=== PATIENT | male | born 1990 | race Caucasian/White ===

== ENCOUNTER → 2020-04-22 12:13 | Outpatient (BNVA) | payer OTHER, SELFPAY | PROVIDERS: Family Provider Internal Medicine; Visit Provider Nurse Practitioner Family | DX: Z20.828 Contact with and (suspected) exposure to other viral communicable diseases (principal) | CPT/HCPCS: 87635 ==

== ENCOUNTER 2024-10-17 06:11 | Emergency (ER) | payer OTHER, SELFPAY ==
[2024-10-17 06:20] VITALS: BP 123/74; PULSE 89; RESP 16; TEMP 36.6; O2SAT 97
--- NOTE | 2024-10-17 07:00 | XR_ITS ---
WS: [id number] XR foot LT min 3V* [id number] REASON FOR EXAM: fall with injury FINDINGS: Calcaneus is intact Somewhat underexposed. No acute fracture. Lisfranc articulations are normal normal base of the fifth metatarsal. Mild TMT varus and MTP valgus joint subluxations of the first toe with minimal arthropathy. The joint spaces of the midfoot are intact and well preserved. On the lateral view there is a subtle cortical offset which could potentially represent an occult nondisplaced fracture of the anterior inferior calcaneus. Correlation with region of pain. No radiopaque soft tissue foreign body. XR/XR foot LT min 3V* [id number] IMPRESSION: Subtle finding of the calcaneus as above.
--- NOTE | 2024-10-17 09:10 | CT_ITS ---
WS: [id number] Noncontrast CT LEFT foot TECHNIQUE: Noncontrast CT LEFT foot with coronal and sagittal reformatted images. CLINICAL INFORMATION: traumatic heal pain c/o calcaneous fx COMPARISON: None. DLP: 155.[address] scans at [facility] use at least one of these dose optimization techniques: automated exposure control; mA and/or kV adjustment per patient size (includes targeted exams where dose is matched to clinical indication); or iterative reconstruction. FINDINGS: Tiny amount of irregularity and cortical step-off involving the anterior medial plantar surface of the calcaneus compatible with a tiny nondisplaced cortical fracture. No other acute fracture is visualized. Tiny plantar calcaneal spur. Normal talar dome. Distal fibula is normal. Normal tibiotalar joint and tibial plafond. Normal cuboid. Normal navicular. Normal ankle mortise. Normal medial lateral malleolus. Plantar soft tissue edema. No other acute findings. CT/CT foot LT wo con* [id number] IMPRESSION: Tiny nondisplaced cortical fracture anterior medial calcaneus corresponding to the radiograph findings
--- NOTE | 2024-10-17 09:11 | ED_ITS ---
HPI - Extremity Problem General: Chief complaint: Extremity Injury, Lower Stated complaint: lt foot inj Time Seen by Provider: 10/17/24 08:29 History of Present Illness: 34-year-old male presents emergency depa rtment chief complaint of left heel pain and mid to foot pain. Patient endorses that he was getting up on a storage shelf while using his flip-flops in which she proceeded to jump down approximately 6 to 8 feet onto the floor patient endorses significant pain located to the left heel with unable to weight-bear without moderate to severe pain. Patient denies any prior history of foot or ankle trauma previously. Patient reports note he sustained no other associated injuries. Associated symptoms: Deny chest pain, fever(s) or rash Related Data Home Medications ?Medication ?Instructions ?Recorded ?Confirmed cetirizine 5 mg-pseudoephedrine ER 1 tab PO Q12H PRN A llergy Symptoms 10/17/24 10/17/24 120 mg tablet,extended release,12hr (Zyrtec-D) Previous Rx's ?Medication ?Instructions ?Recorded hydrocodone 5 mg-acetaminophen 325 1 tab PO Q8H PRN pa in #20 tabs 10/17/24 mg tablet Allergies Allergy/AdvReac Type Severity Reaction Status Date / Time No Known Allergies Allergy Unverified 04/22/20 10:23 Review of Systems General: Reports: 10 or more systems reviewed and unremarkable except in HPI and below Const: Denies: fever(s), chills, fatigue or malaise Eyes: Denies: change in vision or blurry vision Card: Denies: chest pain or palpitations Resp: Denies: dyspnea or productive cough GI: Denies: abdominal pain, nausea or vomiting : Denies: flank pain Musc: Reports: extremity pain; Denies: extremity swelling Skin/Breast: Denies: rash or pruritus Neuro: Denies: headache(s) Psych: Denies: anxiety or depression Terry/Lymph: Denies: easy bleeding All/Imm: Denies: urticaria, throat swelling or facial swelling PFSH ED PFSH: Social History Smoking and tobacco/nicotine status: unknown if used tobacco/nicotine Physical Exam Const: COMMON NORMALS: no acute distress, patient oriented x3 and healthy appearing HENMT: COMMON NORMALS: normocephalic and atraumatic HEAD & SCALP: normocephalic and atraumatic Eye: COMMON NORMALS: Equal, round and reactive pupils present and EOMs intact bilaterally PUPIL: Yes Equal, round and reactive pupils present Neck/C-Spine: COMMON NORMALS: full ROM, supple and no JVD Lymph: LYMPHATIC: no lymphadenopathy noted Chest: COMMONS NORMALS: normal inspection of the chest and normal palpation of entire chest wall Resp: COMMON NORMALS: normal respiratory effort, No retractions and clear to auscultation bilaterally EFFORT & INSPECTION: Yes able to speak in complete sentences and Yes symmetric chest movement AUSCULTATION: clear to auscultation bilaterally Cardio: COMMON NORMALS: no JVD, regular rate and regular rhythm RATE: regular rate RHYTHM: regular rhythm GI: COMMON NORMALS: Normal to inspection, nondistended, normoactive bowel sounds present, Soft to palpation and non-tender INSPECTION: Yes normal to inspection PALPATION: Yes Soft to palpation : COMMON NORMALS: Yes no CVA tenderness BLADDER/KIDNEY EXAM: Yes no CVA tenderness Back/Pelvis: COMMON NORMALS: no CVA tenderness Extremity: COMMON NORMALS: negative for normal to inspection and negative for full ROM NARRATIVE EXTREMITY EXAM: Moderate pain to palpation over the heel of the left ankle no obvious ecchymosis crepitus appreciated, the patient has a little bit difficulty with plantar extension due to pain there is also pain over the midfoot region over the ball of the foot, neurovascularly intact distally Neuro: COMMON NORMALS: patient oriented x3, CN's II-XII intact bilaterally, moves all extremities and no focal motor deficits Psych: COMMON NORMALS: mental status grossly normal, Normal thought process present, cooperative and normal affect THOUGHT PROCESS: Normal thought process present Skin: COMMON NORMALS: no rashes or lesions noted GENERAL SKIN EXAM: no rashes or lesions noted Course Vital Signs: Vital signs: Vital Signs Temperature 98 F 10/17/24 06:20 Pulse Rate 89 10/17/24 06:20 Respiratory Rate 16 10/17/24 06:20 Blood Pressure 123/74 10/17/24 06:20 Pulse Oximetry 97 10/17/24 06:20 MDM - Extremity (Nontraumatic) Medical Decision Making X-ray imaging was originally obtained the patient revealed a questionable cortical abnormality in the calcaneus is noted by radiology due to this this he does need CT of the foot without contrast will be obtained underlying concerns on exam is a calcaneus fracture and midfoot injury patient will be provided a dose of hydrocodone for his breakthrough pain control will continue to follow. Discussed patient's case with Dr. Palacios on for foot and ankle and which does not take care of these calcaneus fractures which recommended prompt follow-up outpatient with with him on Sunday in the office, patient will be placed into a short leg splint with crutches hydrocodone was provided for breakthrough pain control advised further follow-up as previously discussed and was to return the interim if any the patient's symptoms persist or worsen. Lab Data Radiology Impressions Foot X-Ray 10/17/24 07:00 IMPRESSION: Subtle finding of the calcaneus as above. Foot CT 10/17/24 09:10 IMPRESSION: Tiny nondisplaced cortical fracture anterior medial calcaneus corresponding to the radiograph findings All radiology interpretation(s) finalized by discharge Discharge Plan Discharge Patient Disposition: Home Clinical Impression: Calcaneus fracture, left Qualifiers: Encounter type: initial encounter Calcaneus location: unspecified portion of calcaneus Fracture type: closed Fracture alignment: nondisplaced Qualified Code(s): S92.002A - Unspecified fracture of left calcaneus, initial encounter for closed fracture Condition: Stable Prescriptions: New hydrocodone-acetaminophen 5-325 mg tablet 1 tab PO Q8H PRN (Reason: pain) Qty: 20 0RF No Action cetirizine-pseudoephedrine [Zyrtec-D] 5-120 mg Tablet Extended Release 12 Hr 1 tab PO Q12H PRN (Reason: Allergy Symptoms) Discharge Orders: Discharge ED (Routine); Ordered 10/17/24 Ordered By: Colin Womack Referrals: Frank Palacios DPM [Physician, Podiatry] - 1-3 days Referral Note: follow-up on sunday at 7 am Clinical Impression: Calcaneus fracture, left Yoandy Shay MD [Primary Care Provider, Family Practice] Discharge Diet: Advance as tolerated Discharge Activity: Use walker/crutches as instructed Patient Instructions: Opioid Safety, Pain Management, Calcaneal Fracture (ED), Fractures - Calcaneus Activity Restrictions/Additional Instructions: Take medication as prescribed please continue to be nonweightbearing on your left foot until cleared by foot and ankle/podiatry Print Language: Polish Coding Level of Care Code ED Pain[employer] Decor[employer] Apprentice for Jahaira Polanco
[2024-10-17] MEDS: HYDROcodone-acetaminophen 5-325 mg Tablet 1 TAB PO (09:15)
--- NOTE | 2024-10-17 11:48 | DCPLANNER ---
scheduled podiatry follow up 10/20 @ 0700 - patient aware of appt time
[2024-10-17 12:18] VITALS: BP 142/88; PULSE 88; O2SAT 100
== END 2024-10-17 12:22 | disposition home or self-care (01) ==
PROVIDERS: Emergency Provider Emergency Medicine; PCP Family Medicine
DX: S92.002A Unspecified fracture of left calcaneus, initial encounter for closed fracture (principal); W17.89XA Other fall from one level to another, initial encounter
CPT/HCPCS: 29515; 73630; 73700; 99284; J9999

== ENCOUNTER 2024-10-20 10:32 | Outpatient (CLI) | payer OTHER, SELFPAY | END 2024-10-20 10:33 | disposition home or self-care (01) | LOC: SPT 10:32 | PROVIDERS: PCP Family Medicine; Visit Provider Podiatrist Foot & Ankle Surgery | DX: Z46.89 Encounter for fitting and adjustment of other specified devices (principal); S92.002D Unspecified fracture of left calcaneus, subsequent encounter for fracture with routine healing; X58.XXXD Exposure to other specified factors, subsequent encounter | CPT/HCPCS: L4361 ==

== ENCOUNTER → 2024-11-03 07:43 | Outpatient (BNVA) | payer OTHER, SELFPAY | PROVIDERS: PCP Family Medicine; Visit Provider Podiatrist Foot & Ankle Surgery | DX: S92.002A Unspecified fracture of left calcaneus, initial encounter for closed fracture (principal); M65.972 Unspecified synovitis and tenosynovitis, left ankle and foot; X58.XXXA Exposure to other specified factors, initial encounter | CPT/HCPCS: 73650 ==